=== PATIENT | male | born 1995 | race Caucasian/White ===

== ENCOUNTER 2017-12-09 12:18 | Emergency (ER) | payer OTHER ==
[2017-12-09 12:25] VITALS: RESP 20; O2SAT 100; BMI 19.0
[2017-12-09] MEDS ORDERED: Sodium Chloride 0.9% 1,000 ML IV ONE (12:57)
--- NOTE | 2017-12-09 13:19 | C.PDOC ---
Addendum entered and electronically signed by Leyda Perez PA 12/11/17 12:26: Disposition - Clinical Impression Clinical Impression: Strep pharyngitis, Abnormal liver enzymes, Vasovagal episode - POA Present On Arrival: None - Disposition Referrals: [facility] [Outside] Disposition: Routine/Home Disposition Time: 15:25 Condition: GOOD Additional Instructions: Take Tylenol or Motrin for pain or fever >100.4. Get thermometer to check temperature. Take antibiotics until completed. FOllow iup with medical clinic in a few days; need re-evaluation of abnormal liver tests. Prescriptions: Amoxicillin [Amoxil 500 mg Cap] 500 mg PO TID #20 cap Instructions: Vasovagal Response (DC) Forms: General Discharge Instructions, [facility] (Turkish) Original Note: History Of Present Illness 22 year old male presents to the ED complaining of sore throat, cough, and hea dache for the past 2 days and vomiting since last night. Reports he fainted 2 days ago when he was sitting on the toilet. Denies any sick contacts or travels. Time Seen by Provider: 12/09/17 12:39 Chief Complaint (Nursing): Flu-like Symptoms History Per: Patient History/Exam Limitations: no limitations Onset/Duration Of Symptoms: Days Current Symptoms Are (Timing): Still Present Location Of Pain: Throat Associated Symptoms: Fever, Sore Throat, Cough, Vomiting. denies: Diarrhea Ear Symptoms: Bilateral: None Past Medical History Reviewed: Historical Data, Nursing Documentation, Vital Signs Vital Signs: Last Vital Signs Temp 98.0 F 12/09/17 12:25 Pulse 87 12/09/17 12:25 Resp 20 12/09/17 12:25 BP 133/87 12/09/17 12:25 Pulse Ox 100 12/09/17 12:25 - Medical History PMH: No Chronic Diseases Surgical History: No Surg Hx Family History: States: No Known Family Hx - Social History Hx Alcohol Use: No Hx Substance Use: No - Immunization History Hx Tetanus Toxoid Vaccination: No Hx Influenza Vaccination: No Hx Pneumococcal Vaccination: No Review Of Systems Constitutional: Positive for: Fever ENT: Positive for: Throat Pain Respiratory: Positive for: Cough Gastrointestinal: Positive for: Vomiting Physical Exam - Physical Exam Appears: Non-toxic Skin: Warm, Dry Head: Normacephalic Eye(s): bilateral: Normal Inspection Ear(s): Bilateral: Normal Nose: Normal Oral Mucosa: Moist Throat: Erythema Neck: Normal ROM Chest: Symmetrical Cardiovascular: Rhythm Regular Respiratory: Normal Breath Sounds, No Rales, No Rhonchi, No Wheezing Gastrointestinal/Abdominal: Soft, No Tenderness Extremity: Normal ROM Extremity: Bilateral: Atraumatic Neurological/Psych: Oriented x3, Normal Speech Gait: Steady ED Course And Treatment - Laboratory Results Result Diagrams: 12/09/17 13:17 12/09/17 13:17 ECG: Interpreted By Me, Viewed By Me ECG Rhythm: Sinus Rhythm ECG Interpretation: No Acute Changes Rate From EC O2 Sat by Pulse Oximetry: 100 (RA) Pulse Ox Interpretation: Normal Medical Decision Making Medical Decision Making: Orders: - EKG - Labwork - Motrin 600mg PO - IV fluids - UA 1500 pt made aware of abnormal lft, will give pt copy of labs, tx for strep Disposition Counseled Patient/Family Regarding: Studies Performed, Diagnosis, Need For Followup, Rx Given - Disposition Referrals: [facility] [Outside] Disposition: HOME/ ROUTINE Disposition Time: 15:13 Condition: GOOD Additional Instructions: Take Tylenol or Motrin for pain or fever >100.4. Get thermometer to check temperature. Take antibiotics until completed. FOllow iup with medical clinic in a few days; need re-evaluation of abnormal liver tests. 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 - Scribe Statement The provider has reviewed the documentation as recorded by the Scribe Nay Landaverde All medical record entries made by the Ramseyiboralia were at my direction and personally dictated by me. I have reviewed the chart and agree that the record accurately reflects my personal performance of the history, physical exam, medical decision making, and the department course for this patient. I have also personally directed, reviewed, and agree with the discharge instructions and di sposition.
[2017-12-09 13:22] LABS: BASO % 0.8 % (0.0-2.0); EOS # 0.1 K/uL (0.0-0.7); EOS % 1.7 % (0.0-4.0); HEMOGLOBIN 15.4 g/dL (12.0-18.0); LYMPH # 1.4 K/uL (1.0-4.3); LYMPH % 24.4 % (20.0-40.0); MEAN CORPUSCULAR HEMOGLOBIN 30.8 pg (27.0-31.0); MEAN CORPUSCULAR HGB CONC 35.4 g/dL (33.0-37.0); MEAN PLATELET VOLUME 9.6 fL (7.2-11.7); MONO # 0.7 K/uL (0.0-0.8); MONO % 12.1 % (0.0-10.0); NEUT # 3.5 K/uL (1.8-7.0); NRBC % 0.1 % (0.0-2.0); RBC 5.01 Mil/uL (4.40-5.90); RED CELL DISTRIBUTION WIDTH 12.4 % (11.5-14.5); WHITE BLOOD COUNT 5.8 K/uL (4.8-10.8)
[2017-12-09] MEDS ORDERED: Sodium Chloride 0.9% 1,000 ML ONE (13:24)
[2017-12-09 13:33] LABS: SQUAMOUS EPITHIAL < 1 /hpf (0-5); URINE BILIRUBIN NEGATIVE (NEGATIVE); URINE BLOOD NEGATIVE (NEGATIVE); URINE CLARITY Clear (Clear); URINE COLOR Yellow (YELLOW); URINE GLUCOSE (UA) NORMAL (Normal); URINE LEUKOCYTE ESTERASE NEG Leu/uL (Negative); URINE PROTEIN 1+ mg/dL (NEGATIVE); URINE UROBILINOGEN NORMAL mg/dL (0.2-1.0)
[2017-12-09 13:36] LABS: ALB/GLOB RATIO 1.6 (1.0-2.1); ALBUMIN 5.1 g/dL (3.5-5.0); ALT/SGPT 113 U/L (21-72); AST/SGOT 66 U/L (17-59); BLOOD UREA NITROGEN 17 mg/dL (9-20); GFR NON-AFRICAN AMERICAN > 60
[2017-12-09 15:20] VITALS: BP 124/80; PULSE 65; TEMP 98.1
--- NOTE | 2017-12-11 21:29 | CARD ---
APPROVED REPORT Date of service: 12/09/2017 EKG Measurement Heart [id number] <Conclusion> Normal sinus rhythm Normal ECG
== END 2017-12-09 15:26 | disposition home or self-care (01) ==
LOC: C.ER 12:18
DX: J02.0 Streptococcal pharyngitis (principal); R74.8 Abnormal levels of other serum enzymes; R55 Syncope and collapse
CPT/HCPCS: 80053; 81001; 85025; 87430; 87804; 93005; 96360; 99285; J7030